=== PATIENT | female | born 1945 | race Caucasian/White ===

== ENCOUNTER 2021-12-29 07:18 | Observation (INO) | payer MEDICARE, OTHER ==
[2021-12-28 14:30] LABS: BASOPHILS % (AUTO) 0.5 % (0-1); EOSINOPHILS # (AUTO) 0.1 X10'3 (0-0.9); EOSINOPHILS % (AUTO) 0.9 % (0-6); HEMATOCRIT 41.9 % (35.0-45.0); LYMPHOCYTES # (AUTO) 0.9 X10'3 (1.1-4.8); LYMPHOCYTES % (AUTO) 13.2 % (21-51); MEAN CORPUSCULAR HEMOGLOBIN 29.9 PG (27.0-31.0); MEAN CORPUSCULAR HGB CONC 33.4 g/dL (33.0-36.5); MEAN CORPUSCULAR VOLUME 89.5 FL (78-98); MEAN PLATELET VOLUME 7.9 FL (7.4-10.4); MONOCYTES # (AUTO) 0.5 X10'3 (0-0.9); MONOCYTES % (AUTO) 6.6 % (2-12); NEUTROPHILS # (AUTO) 5.5 X10'3 (1.8-7.7); NEUTROPHILS % (AUTO) 78.8 % (42-75); PLATELET COUNT 183 X10'3 (140-440); RED BLOOD COUNT 4.68 X10'6 (4.20-5.60); RED CELL DISTRIBUTION WIDTH 14.2 % (11.5-14.5)
[2021-12-28 14:42] LABS: ANION GAP 4 (8-16); CHLORIDE 109 MMOL/L (99-107); GLUCOSE 120 MG/DL (70-104); POTASSIUM 4.2 MMOL/L (3.5-5.1); SODIUM 142 MMOL/L (135-145); TOTAL CARBON DIOXIDE 28.9 MMOL/L (24-32)
[2021-12-28 14:43] LABS: ALBUMIN 3.2 G/DL (3.4-5.0); BLOOD UREA NITROGEN 16 MG/DL (7-18); BUN/CREATININE RATIO 15.2 (6.6-38.0); CALCIUM 8.8 MG/DL (8.5-10.1); CREATININE 1.05 MG/DL (0.40-0.90); eGFR 51 ML/MIN
[2021-12-29] VITALS (23 sets, daily range): BP systolic 78–156; BP diastolic 35–90
[~2021-12-29] VITALS: Ht 162.6 cm; Wt 67.2 kg
[~2021-12-29 07:18] MED LIST: ASPI-1265 PO; FAMO-1 PO; FLUO20CA39 PO; LISI20TA28 PO; ROSU5TAB4 PO; ZET10T PO
[2021-12-29] MEDS ORDERED: amiodarone 150mg/dext, iso-os 100 ML IV ONE (07:50)
[2021-12-29] MEDS ORDERED: LORazepam 0.5 MG tablet PO ONE (07:50)
[2021-12-29] MEDS ORDERED: normal saline 1000ml 1,000 ML IV SCH (07:50)
[2021-12-29] MEDS ORDERED: morphine 10mg/ml inj. IV ONE (07:50)
[2021-12-29] MEDS ORDERED: MIDAZolam 1mg/ml 10ml vial IV ONE (07:50)
[2021-12-29] MEDS ORDERED: atropine 0.1mg/ml 10ml syringe IV ONE (07:50)
[2021-12-29] MEDS ORDERED: diphenhydrAMINE 25mg capsule PO ONE (07:50)
[2021-12-29] MEDS ORDERED: APIX5TAB3 PO (07:51)
[2021-12-29] MEDS ORDERED: ROSU40TA22 PO (07:51)
[2021-12-29] MEDS ORDERED: AMIO200T61 (07:51)
[2021-12-29] MEDS ORDERED: CARV6.2555 PO (07:51)
[2021-12-29] MEDS ORDERED: enoxaparin 100mg/ml syringe SUBCUT ONE (07:55)
[2021-12-29] MEDS ORDERED: enoxaparin 40mg/0.4ml syringe SUBCUT ONE (08:10)
[2021-12-29] MEDS ORDERED: enoxaparin 30mg/0.3ml syringe SUBCUT ONE (08:10)
--- NOTE | 2021-12-29 11:40 | NUR ---
Pt laying in bed, drank 200ml oral fluid. Pt denies cp, denies sob. Pt and family were educated extensively on s/s of hypotension, monitoring HR and medication administration. Pt verbalized understanding importance of taking her BP prior to taking her medications at home to document HR. She states she understands not to take her carvedilol if her HR is lower than <45. Pt's son and hiprjxxi-oq-pnt are at the bedside. All questions were answered.
--- NOTE | 2021-12-29 12:06 | NUR ---
Pt sat up with feet dangling. Orthostatic vs charted. Pt remains marcell, denies cp, denies sob. Pt drank 250ml water.
--- NOTE | 2021-12-29 12:46 | NUR ---
Contacted MD to report pt difficulty in ambulating. Pt denies cp and sob. Pt vs charted. Pt family states concerns in patients ability to care for herself at home alone. Son and [id number] live out of town. MD states he will call back.
--- NOTE | 2021-12-29 13:37 | NUR ---
MD at bedside. Pt resting in bed. Son at bedside.
[2021-12-29] MEDS ORDERED: AMIO100T4 PO (14:21)
[2021-12-29] MEDS ORDERED: CARV3.122 PO (14:23)
[2021-12-29] MEDS: normal saline 1000ml 1,000 ML IV SCH ×2 (14:32→20:20)
--- NOTE | 2021-12-29 14:32 | NUR ---
Pt sitting up in bed, visiting with son and asuarkae-od-hfs who are at bedside. Pt HR 39 SpO2 97% on RA, Resp 19 BP 89/44. Pt denies cp, denies sob. Denies pain.
--- NOTE | 2021-12-29 15:53 | NUR ---
Pt reports feeling "dizzy" and that it was "hard to concentrate" as she was playing scrabble on her phone. Pt VS HR 39 BP 149/132, SpO2 88% on RA. Pt has equal bilateral wallboard worker, no facial droop, neuro check fine, no slurred speech. Gurpreet LING
--- NOTE | 2021-12-29 16:01 | NUR ---
All findings reported to MD. Echocardiogram ordered.
--- NOTE | 2021-12-29 16:04 | NUR ---
Pt sitting up in bed, playing "Scrabble" on her phone. Pt denies cp, denies sob. Pt's son at bedside. Educated patient on new order for Echo to be performed. Reassurance given to patient. Pt verbalized understanding, all questions answered.
--- NOTE | 2021-12-29 16:10 | NUR ---
renal dialysis technician at bedside.
--- NOTE | 2021-12-29 16:35 | NUR ---
Problems reprioritized. Patient report given, questions answered & plan of care reviewed with Elizabeth RIOS.
--- NOTE | 2021-12-29 16:45 | NUR ---
Pt transferred to tele
--- NOTE | 2021-12-29 17:45 | NUR ---
Pt son reporting that pt was not able to remember a word. "She is normally really sharp" Completed neuro assessment -Pt has equal bilateral electronic equipment maint tech, no facial droop, neuro check fine, no slurred speech. Pt VS HR 42 BP 110/51, SpO2 97% on RA. Paged MD Quick with answering service finally answered after 3 minutes on hold.
[2021-12-29] MEDS ORDERED: ondansetron/PF 4mg/2ml inj IV PRN (18:25)
--- NOTE | 2021-12-29 19:00 | NUR ---
Multiple orders rec'd from Dr CRAIG, all read back and entered. Pt still has not urinated. No bladder distention and pt does not feel the urge. She advised that she's had a problem urinating. Per MD, ok to straight cath if she retains urine.
[2021-12-29] MEDS: lisinopril 20mg tablet PO SCH (20:00)
[2021-12-29] MEDS ORDERED: carVEDilol 3.125mg tablet PO SCH (20:00)
[2021-12-29] MEDS: FLUoxetine 20mg capsule PO SCH (20:00)
[2021-12-29] MEDS ORDERED: apixaban 5mg tablet PO SCH (20:00)
--- NOTE | 2021-12-29 20:10 | NUR ---
Called Dr CRAIG call center: LM with potential left temporal stroke. Pending call back.
[2021-12-29] MEDS ORDERED: heparin 10,000 units/1 ML INJ IV PRN (20:20)
[2021-12-29] MEDS ORDERED: heparin 10,000 units/1 ML INJ IV ONE (20:20)
[2021-12-29] MEDS ORDERED: heparin 25,000 UNIT/250ml bag 250 ML IV PRN (20:20)
--- NOTE | 2021-12-29 20:28 | NUR ---
Per CM - call stroke alert for confirmation and start hep gtt. 4000 bolus, start hep gtt @ 1000. Per stroke nurseHarriet - need stroke alert head CT, no contrast, do NOT start hep gtt yet.
[2021-12-29 22:23] LABS: BASOPHILS # (AUTO) 0.1 X10'3 (0-0.2); BASOPHILS % (AUTO) 0.5 % (0-1); EOSINOPHILS # (AUTO) 0.1 X10'3 (0-0.9); EOSINOPHILS % (AUTO) 0.8 % (0-6); HEMATOCRIT 38.8 % (35.0-45.0); HEMOGLOBIN 12.6 g/dl (12.0-16.0); LYMPHOCYTES # (AUTO) 0.9 X10'3 (1.1-4.8); LYMPHOCYTES % (AUTO) 9.4 % (21-51); MEAN CORPUSCULAR HEMOGLOBIN 29.5 PG (27.0-31.0); MEAN CORPUSCULAR HGB CONC 32.5 g/dL (33.0-36.5); MEAN CORPUSCULAR VOLUME 90.9 FL (78-98); MEAN PLATELET VOLUME 8.4 FL (7.4-10.4); MONOCYTES # (AUTO) 0.6 X10'3 (0-0.9); MONOCYTES % (AUTO) 6.1 % (2-12); NEUTROPHILS # (AUTO) 8.2 X10'3 (1.8-7.7); NEUTROPHILS % (AUTO) 83.2 % (42-75); PLATELET COUNT 159 X10'3 (140-440); RED BLOOD COUNT 4.26 X10'6 (4.20-5.60); RED CELL DISTRIBUTION WIDTH 14.8 % (11.5-14.5); WHITE BLOOD COUNT 9.8 X10'3 (4.5-11.0)
[2021-12-29 22:36] LABS: APTT 30 SECONDS (22-32)
[2021-12-30] VITALS (8 sets, daily range): BP systolic 125–138; BP diastolic 42–70
--- NOTE | 2021-12-30 01:25 | NUR ---
called answering service of dr. dhillon.
--- NOTE | 2021-12-30 05:30 | NUR ---
small bruise noted rt outer thigh and small scratch inner l thigh.
--- NOTE | 2021-12-30 05:56 | NUR ---
Pt fell around 0050 this morning unassisted on to the floor and she was helped back to bed; no injury noted. She is on heparin drip but no signs of bleeding noted. June RN did call out to Dr. Meng to notify of pt's fall.
[2021-12-30 06:06] LABS: BASOPHILS % (AUTO) 0.4 % (0-1); EOSINOPHILS % (AUTO) 0.5 % (0-6); HEMATOCRIT 34.2 % (35.0-45.0); HEMOGLOBIN 11.4 g/dl (12.0-16.0); LYMPHOCYTES # (AUTO) 1.2 X10'3 (1.1-4.8); MEAN CORPUSCULAR HEMOGLOBIN 30.3 PG (27.0-31.0); MEAN CORPUSCULAR HGB CONC 33.2 g/dL (33.0-36.5); MEAN CORPUSCULAR VOLUME 91.3 FL (78-98); MEAN PLATELET VOLUME 8.3 FL (7.4-10.4); MONOCYTES # (AUTO) 0.7 X10'3 (0-0.9); MONOCYTES % (AUTO) 7.1 % (2-12); NEUTROPHILS # (AUTO) 7.4 X10'3 (1.8-7.7); PLATELET COUNT 137 X10'3 (140-440); RED BLOOD COUNT 3.75 X10'6 (4.20-5.60); RED CELL DISTRIBUTION WIDTH 14.8 % (11.5-14.5); WHITE BLOOD COUNT 9.4 X10'3 (4.5-11.0)
[2021-12-30 06:15] LABS: ALANINE AMINOTRANSFERASE 49 U/L (12-78); ALBUMIN 2.7 G/DL (3.4-5.0); ALBUMIN/GLOBULIN RATIO 1.2 (1.1-1.5); ALKALINE PHOSPHATASE 71 IU/L (46-116); ANION GAP 7 (8-16); ASPARTATE AMINO TRANSFERASE 47 U/L (10-37); BILIRUBIN,TOTAL 0.6 MG/DL (0.1-1.0); BLOOD UREA NITROGEN 22 MG/DL (7-18); BUN/CREATININE RATIO 15.7 (6.6-38.0); CALCIUM 7.9 MG/DL (8.5-10.1); CHLORIDE 110 MMOL/L (99-107); GLUCOSE 84 MG/DL (70-104); POTASSIUM 4.5 MMOL/L (3.5-5.1); SODIUM 141 MMOL/L (135-145); TOTAL CARBON DIOXIDE 23.7 MMOL/L (24-32); eGFR 37 ML/MIN
[2021-12-30] MEDS: ceFAZolin/D5W- 1GM premix 50 ML IV SCH ×3 (08:00→23:52)
[2021-12-30] MEDS ORDERED: amiodarone 200mg tablet PO SCH (08:00)
[2021-12-30] MEDS: aspirin 81mg tab.chew PO SCH (08:00)
[2021-12-30] MEDS: FLUoxetine 20mg capsule PO SCH ×2 (08:55→20:52)
[2021-12-30] MEDS: atorvastatin 20mg tablet PO SCH (08:55)
[2021-12-30] MEDS: ezetimibe 10mg tablet PO SCH (08:55)
[2021-12-30] MEDS: lisinopril 20mg tablet PO SCH ×2 (08:55→20:52)
--- NOTE | 2021-12-30 11:07 | NUR ---
Right hip bruise reassessed per pt family's request. Pt's bruise raised and purple, tender to palpation. Pt in good spirits and otherwise states she is feels fine. neurovascular intact and at baseline. Will continue to monitor.
[2021-12-30] MEDS ORDERED: LIDOCAINE 1%/EPI 1:100,000 inj. 10 ML multi-dose vial ONE ×2 (11:50→12:30)
[2021-12-30] MEDS ORDERED: ceFAZolin 1000mg inj ONE (11:51)
[2021-12-30] MEDS ORDERED: midazolam 1 mg/ML 2ml injection ONE (11:51)
[2021-12-30] MEDS ORDERED: fentaNYL/PF 50MCG/1 ML 2ML syringe ONE (11:51)
[2021-12-30] MEDS ORDERED: normal saline 1,000 ML IV SCH (14:25)
[2021-12-30] MEDS ORDERED: vancomycin/NS 1 GM ADD-VANTAGE 250 ML X 1 DOSE IV ONE (15:00)
--- NOTE | 2021-12-30 19:02 | NUR ---
Patient in room PCU 3012G. I have received report from Karolyn RIOS and had the opportunity to ask questions and assume patient care. Pt is laying semi fowlers in bed. Pt has L arm in sling. Sx Dressing to L chest CDI. No s/s of bleeding. Pt declines c/o pain at this time. Pt has ABX running per MD order. BLL, call light within reach, frequently used items in reach, frequent rounding, bed alarm on , alarm activated and audiable, sql consultant socks on. Will continue to monitor.
[2021-12-30] MEDS: carvedilol 6.25mg tablet PO SCH (21:58)
--- NOTE | 2021-12-31 05:50 | NUR ---
Dc'd pts patterson. Bladder trained pt by clamping and unclamping patterson thought the night. Removed patterson catheter at 0530. Pt tolerated well. No s/s of bladder distention. Will continue to monitor.
[2021-12-31 06:00] VITALS: BP 131/55
--- NOTE | 2021-12-31 06:26 | NUR ---
Problems reprioritized. Patient report given, questions answered & plan of care reviewed with Aura RIOS.
--- NOTE | 2021-12-31 06:45 | NUR ---
Patient in room PCU 3015. I have received report from Lavonne and had the opportunity to ask questions and assume patient care.
[2021-12-31] MEDS: ceFAZolin/D5W- 1GM premix 50 ML IV SCH ×2 (08:57→16:00)
[2021-12-31] MEDS: carvedilol 6.25mg tablet PO SCH (09:15)
[2021-12-31] MEDS: aspirin 81mg tab.chew PO SCH (09:15)
[2021-12-31] MEDS: FLUoxetine 20mg capsule PO SCH (09:16)
[2021-12-31] MEDS: lisinopril 20mg tablet PO SCH (09:16)
[2021-12-31] MEDS: atorvastatin 20mg tablet PO SCH (09:16)
[2021-12-31] MEDS: ezetimibe 10mg tablet PO SCH (09:17)
[2021-12-31 10:00] VITALS: BP 134/56
[2021-12-31] MEDS ORDERED: CEPH250T PO (10:50)
--- NOTE | 2021-12-31 15:15 | NUR ---
After reviewing DC instructions with pt and daughter, pt was walked down the corridor but still expressing some feelings of dizziness. Pt was able to walk with a FWW approx. 100 ft but became unstable on her feet. Pt placed in wheelchair and back in her room. Daughter at bedside. Reached out to cardio ROLLER INSPECTOR. Advised to call oncology pharmacist. Called answering service as the 's office was closed. Explained pt's symptoms and last VS. Pending return call from oncology pharmacist.
[2021-12-31 15:18] VITALS: BP 98/41
--- NOTE | 2021-12-31 15:30 | NUR ---
Discussed options with marketing sales representative. Discussed with daughter and her that they could stay with pt, the concern is now getting her into the home. Pt's daughter was asking for a wheelchair to be sent home. Pt's daughter was concerned about pt falling even though family would be present. [employer] was advised pt was okay to go home as the same issue with slight dizziness may present itself tomorrow and then what would the plan be... Returned to discuss concerns with pt and daughter. They asked to wait until the daughter's could be present to assist with getting pt home and to help care for her. The is an estimated 2.5 hours away. [employer] ok with pt staying for the approx. 2.5 hours. Addendum: 12/31/21 at 1741 by Aura Seth RN Pt was able to discharge at 17:30. Pt was wheeled downstairs by staff and accompanied by her daughter. Her daughter will drive her home where the is waiting. During this notation, marketing sales representative phoned. Reviewed all that transpired with him and advised pt had left just moments ago. Pt has some slight weakness but feels much better. [employer] satisfied with the way the discharge was resolved.
[2022-01-06] MEDS ORDERED: CARV6.2555 PO (16:18)
[2022-01-06] MEDS ORDERED: CEPH250C PO (16:18)
[2022-01-06] MEDS ORDERED: AMIO200T61 PO (16:18)
[2022-01-06] MEDS ORDERED: LISI20TA28 PO (16:19)
[2022-01-06] MEDS ORDERED: FLUO40CA PO (16:20)
[2022-01-06] MEDS ORDERED: ACET325T55 PO (16:22)
== END 2021-12-31 17:30 | disposition home or self-care (01) ==
LOC: SSTAY O 07:18 → PCU 3S 13:47
PROVIDERS: ADMIT Internal Medicine Cardiovascular Disease; ATTEND Internal Medicine Cardiovascular Disease
DX: I97.190 Other postprocedural cardiac functional disturbances following cardiac surgery (principal); I49.5 Sick sinus syndrome; I95.9 Hypotension, unspecified; I25.10 Atherosclerotic heart disease of native coronary artery without angina pectoris; I10 Essential (primary) hypertension; E78.5 Hyperlipidemia, unspecified; R41.82 Altered mental status, unspecified; I48.0 Paroxysmal atrial fibrillation; Z79.01 Long term (current) use of anticoagulants; Z79.82 Long term (current) use of aspirin; Z95.1 Presence of aortocoronary bypass graft; Z79.899 Other long term (current) drug therapy
CPT/HCPCS: 33208; 36415; 70450; 70544; 70551; 71046; 80048; 80053; 85025; 85347; 85610; 85730; 92960; 93005; 93306; 96365; 96366; 96368; 96372; 96375; C1785; C1786; C1894; C1898; G0378; G0379; J0461; J0690; J1650; J2250; J2274; J2405; J3010; J3370; J3490; J7030; 99152; 99153; A4314; A4565; A4615; A4620; A6258; A6449

== ENCOUNTER 2022-01-21 11:55 | Inpatient (IN) | payer MEDICARE, OTHER ==
[~2022-01-21] VITALS: Ht 162.6 cm; Wt 65.0 kg
[2022-01-21] VITALS (10 sets, daily range): BP systolic 100–152; BP diastolic 43–70
[~2022-01-21 11:55] MED LIST changes: +ACET325T55 PO; +AMIO200T61 PO; +APIX5TAB3 PO; +CARV6.2555 PO; +CEPH250C PO; -FAMO-1 PO; +FER325T PO; +FLO0.1T PO; -FLUO20CA39 PO; +FLUO40CA PO; +ROSU40TA22 PO; -ROSU5TAB4 PO
[2022-01-21] MEDS ORDERED: ondansetron/PF 4mg/2ml inj IV ONE (12:55)
[2022-01-21] MEDS ORDERED: pantoprazole 40mg IV 80 MG in normal saline 100ml IV soln 100 ML IV ONE (12:55)
[2022-01-21 13:39] LABS: BASOPHILS # (AUTO) 0.1 X10'3 (0-0.2); BASOPHILS % (AUTO) 0.6 % (0-1); EOSINOPHILS % (AUTO) 0.3 % (0-6); LYMPHOCYTES # (AUTO) 0.8 X10'3 (1.1-4.8); LYMPHOCYTES % (AUTO) 8.7 % (21-51); MEAN CORPUSCULAR HEMOGLOBIN 33.1 PG (27.0-31.0); MEAN CORPUSCULAR HGB CONC 32.3 g/dL (33.0-36.5); MEAN CORPUSCULAR VOLUME 102.6 FL (78-98); MEAN PLATELET VOLUME 7.8 FL (7.4-10.4); MONOCYTES # (AUTO) 0.6 X10'3 (0-0.9); MONOCYTES % (AUTO) 7.1 % (2-12); NEUTROPHILS # (AUTO) 7.3 X10'3 (1.8-7.7); NEUTROPHILS % (AUTO) 83.3 % (42-75); PLATELET COUNT 214 X10'3 (140-440); RED BLOOD COUNT 1.91 X10'6 (4.20-5.60); RED CELL DISTRIBUTION WIDTH 21.3 % (11.5-14.5); WHITE BLOOD COUNT 8.8 X10'3 (4.5-11.0)
[2022-01-21 13:52] LABS: HEMATOCRIT 19.6 % (35.0-45.0); HEMOGLOBIN 6.3 g/dl (12.0-16.0)
[2022-01-21 13:54] LABS: APTT 27 SECONDS (22-32)
[2022-01-21 14:11] LABS: ALANINE AMINOTRANSFERASE 22 U/L (12-78); ALBUMIN 2.5 G/DL (3.4-5.0); ALBUMIN/GLOBULIN RATIO 1.2 (1.1-1.5); ALKALINE PHOSPHATASE 58 IU/L (46-116); ANION GAP 5 (8-16); ASPARTATE AMINO TRANSFERASE 22 U/L (10-37); BILIRUBIN,TOTAL 0.5 MG/DL (0.1-1.0); BLOOD UREA NITROGEN 34 MG/DL (7-18); BUN/CREATININE RATIO 31.8 (6.6-38.0); CALCIUM 8.3 MG/DL (8.5-10.1); CHLORIDE 109 MMOL/L (99-107); CREATININE 1.07 MG/DL (0.40-0.90); GLUCOSE 116 MG/DL (70-104); POTASSIUM 3.9 MMOL/L (3.5-5.1); SODIUM 141 MMOL/L (135-145); TOTAL CARBON DIOXIDE 26.6 MMOL/L (24-32); TOTAL PROTEIN 4.6 G/DL (6.4-8.2); eGFR 50 ML/MIN
[2022-01-21 14:28] LABS: CLARITY,URINE CLEAR (Clear); COLOR,URINE YELLOW (Yellow); GLUCOSE, URINE NEGATIVE (Neg); KETONES,URINE NEGATIVE (Neg); LEUKOCYTE ESTERASE ,URINE NEGATIVE (Neg); NITRITES, URINE NEGATIVE (Neg); OCCULT BLOOD,URINE NEGATIVE (Neg); PH,URINE 5.5 (4.8-8.0); PROTEIN,URINE NEGATIVE (Neg); UROBILINOGEN,URINE 0.2 E.U/dL (0.2-1.0)
[2022-01-21 14:30] LABS: ANISOCYTOSIS 3+; PLATELET ESTIMATE NORMAL; POLYCHROMASIA 1+
[2022-01-21 14:30] LABS: UA COLLECTION TYPE VOIDED
[2022-01-21 14:31] LABS: ELLIPTOCYTES FEW; TEAR DROP CELLS FEW
[2022-01-21] MEDS ORDERED: magnesium hydroxide 30ml (MOM) UD suspension PO PRN (15:05)
[2022-01-21] MEDS ORDERED: potassium Cl 40MEQ/1/2NS 520ml 520 ML IV PRN (15:05)
[2022-01-21] MEDS ORDERED: ondansetron/PF 4mg/2ml inj IV PRN (15:05)
[2022-01-21] MEDS ORDERED: mag hydrox/Alum hydrox/simeth 30ml oral suspension PO PRN (15:05)
[2022-01-21] MEDS ORDERED: magnesium 4gm in 100ml NS 100 ML IV PRN (15:05)
[2022-01-21] MEDS ORDERED: potassium Cl 20 mEq SR tablet PO PRN ×2 (15:05)
[2022-01-21] MEDS ORDERED: acetaminophen 325mg tablet PO PRN (15:05)
[2022-01-21] MEDS ORDERED: magnesium Cl slow-release 64mg tablet PO PRN (15:05)
[2022-01-21] MEDS ORDERED: FLUO-167 PO (15:48)
[2022-01-21] MEDS ORDERED: RIVA20TA PO (16:04)
[2022-01-21] MEDS ORDERED: FLUD0.1T PO (16:04)
[2022-01-21] MEDS ORDERED: MAGN400O6 PO (16:04)
[2022-01-21] MEDS ORDERED: FERR-39 PO (16:04)
[2022-01-21] MEDS ORDERED: NA P133E4 RC (16:04)
[2022-01-21] MEDS ORDERED: ONDA-103 PO (16:04)
[2022-01-21] MEDS ORDERED: ATOR20TA66 PO (16:04)
[2022-01-21] MEDS ORDERED: BISA10SU11 RC (16:04)
[2022-01-21] MEDS ORDERED: MULT-1085 PO (16:04)
[2022-01-21] MEDS ORDERED: BISA-155 PO (16:04)
[2022-01-21] MEDS ORDERED: DOCU100C40 PO (16:04)
[2022-01-21] MEDS: ferrous sulfate 325mg tablet PO SCH (20:00)
[2022-01-21 21:38] LABS: HEMATOCRIT 27.8 % (35.0-45.0); HEMOGLOBIN 9.4 g/dl (12.0-16.0); MEAN CORPUSCULAR HEMOGLOBIN 31.4 PG (27.0-31.0); MEAN CORPUSCULAR HGB CONC 33.8 g/dL (33.0-36.5); MEAN CORPUSCULAR VOLUME 92.9 FL (78-98); MEAN PLATELET VOLUME 7.6 FL (7.4-10.4); PLATELET COUNT 154 X10'3 (140-440); RED CELL DISTRIBUTION WIDTH 22.4 % (11.5-14.5); WHITE BLOOD COUNT 9.5 X10'3 (4.5-11.0)
[2022-01-21] MEDS: docusate sod 100mg capsule PO SCH (22:42)
[2022-01-21] MEDS: carvedilol 6.25mg tablet PO SCH (22:42)
[2022-01-22] VITALS (11 sets, daily range): BP systolic 121–152; BP diastolic 45–60
[2022-01-22 06:49] LABS: ALANINE AMINOTRANSFERASE 19 U/L (12-78); ALBUMIN 2.3 G/DL (3.4-5.0); ALBUMIN/GLOBULIN RATIO 1.1 (1.1-1.5); ALKALINE PHOSPHATASE 56 IU/L (46-116); ANION GAP 7 (8-16); ASPARTATE AMINO TRANSFERASE 19 U/L (10-37); BILIRUBIN,TOTAL 1.3 MG/DL (0.1-1.0); BLOOD UREA NITROGEN 34 MG/DL (7-18); BUN/CREATININE RATIO 35.1 (6.6-38.0); CALCIUM 8.1 MG/DL (8.5-10.1); CHLORIDE 111 MMOL/L (99-107); CREATININE 0.97 MG/DL (0.40-0.90); GLUCOSE 92 MG/DL (70-104); MAGNESIUM 1.9 MG/DL (1.5-2.4); SODIUM 143 MMOL/L (135-145); TOTAL CARBON DIOXIDE 24.9 MMOL/L (24-32); TOTAL PROTEIN 4.4 G/DL (6.4-8.2); eGFR 56 ML/MIN
[2022-01-22 06:52] LABS: ABSOLUTE RETICS # 298500 /CUMM (23000-93000); BASOPHILS # (AUTO) 0.1 X10'3 (0-0.2); BASOPHILS % (AUTO) 0.6 % (0-1); EOSINOPHILS # (AUTO) 0.1 X10'3 (0-0.9); EOSINOPHILS % (AUTO) 0.8 % (0-6); HEMATOCRIT 26.8 % (35.0-45.0); HEMOGLOBIN 9.2 g/dl (12.0-16.0); LYMPHOCYTES # (AUTO) 1.2 X10'3 (1.1-4.8); LYMPHOCYTES % (AUTO) 14.2 % (21-51); MEAN CORPUSCULAR HEMOGLOBIN 31.8 PG (27.0-31.0); MEAN CORPUSCULAR HGB CONC 34.3 g/dL (33.0-36.5); MEAN CORPUSCULAR VOLUME 92.7 FL (78-98); MEAN PLATELET VOLUME 7.8 FL (7.4-10.4); MONOCYTES # (AUTO) 0.6 X10'3 (0-0.9); MONOCYTES % (AUTO) 7.3 % (2-12); NEUTROPHILS # (AUTO) 6.5 X10'3 (1.8-7.7); NEUTROPHILS % (AUTO) 77.1 % (42-75); PLATELET COUNT 147 X10'3 (140-440); RED CELL DISTRIBUTION WIDTH 23.2 % (11.5-14.5); RETICULOCYTE % (AUTO) 10.3 % (0.5-1.5); WHITE BLOOD COUNT 8.5 X10'3 (4.5-11.0)
--- NOTE | 2022-01-22 06:59 | NUR ---
Patient in room PCU 3024. I have received report from GABRIEL Vee and had the opportunity to ask questions and assume patient care.
[2022-01-22 07:28] LABS: % IRON SATURATION 81 % (11-46); IRON 233 UG/DL (49-151); TOTAL IRON BINDING CAPACITY 287 UG/DL (259-388)
[2022-01-22 07:29] LABS: FERRITIN 92 NG/ML (8-252)
[2022-01-22] MEDS: docusate sod 100mg capsule PO SCH ×2 (07:46→21:50)
[2022-01-22 07:47] LABS: ANISOCYTOSIS 3+; NUCLEATED RED BLOOD CELLS 2 /100WBC (0-0); PLATELET ESTIMATE NORMAL; TOTAL CELLS COUNTED 100
[2022-01-22] MEDS: amiodarone 200mg tablet PO SCH (07:48)
[2022-01-22] MEDS: carvedilol 6.25mg tablet PO SCH ×2 (07:48→21:45)
[2022-01-22] MEDS: FLUoxetine 20mg capsule PO SCH (07:48)
[2022-01-22] MEDS: ferrous sulfate 325mg tablet PO SCH ×2 (07:49→21:45)
[2022-01-22] MEDS: atorvastatin 20mg tablet PO SCH (07:50)
[2022-01-22] MEDS: ezetimibe 10mg tablet PO SCH (10:06)
--- NOTE | 2022-01-22 18:15 | NUR ---
Patient in room PCU 3024. I have received report from Maxine RIOS and had the opportunity to ask questions and assume patient care.
--- NOTE | 2022-01-22 18:25 | NUR ---
Problems reprioritized. Patient report given, questions answered & plan of care reviewed with MARCIANO Garg.
--- NOTE | 2022-01-23 01:29 | NUR ---
Student documentation: I have reviewed and agree with all interventions, assessments performed and documented by Rae Jackson.
--- NOTE | 2022-01-23 01:30 | NUR ---
Student Medication Administration: For this medication-pass time frame, all medication were reviewed, dispensed, administered and documented per hospital policy by Rae Jackson.
[2022-01-23 02:00] VITALS: BP 125/55
[2022-01-23 06:00] VITALS: BP 106/55
[2022-01-23 06:29] LABS: BASOPHILS % (AUTO) 0.7 % (0-1); EOSINOPHILS # (AUTO) 0.1 X10'3 (0-0.9); EOSINOPHILS % (AUTO) 1.5 % (0-6); HEMATOCRIT 24.1 % (35.0-45.0); HEMOGLOBIN 8.1 g/dl (12.0-16.0); LYMPHOCYTES % (AUTO) 13.6 % (21-51); MEAN CORPUSCULAR HEMOGLOBIN 31.3 PG (27.0-31.0); MEAN CORPUSCULAR HGB CONC 33.6 g/dL (33.0-36.5); MEAN CORPUSCULAR VOLUME 93.3 FL (78-98); MONOCYTES # (AUTO) 0.6 X10'3 (0-0.9); MONOCYTES % (AUTO) 8.3 % (2-12); NEUTROPHILS # (AUTO) 5.4 X10'3 (1.8-7.7); NEUTROPHILS % (AUTO) 75.9 % (42-75); PLATELET COUNT 141 X10'3 (140-440); RED BLOOD COUNT 2.58 X10'6 (4.20-5.60); RED CELL DISTRIBUTION WIDTH 22.9 % (11.5-14.5); WHITE BLOOD COUNT 7.1 X10'3 (4.5-11.0)
--- NOTE | 2022-01-23 06:42 | NUR ---
Problems reprioritized. Patient report given, questions answered & plan of care reviewed with Trish RIOS.
[2022-01-23 06:49] LABS: ALANINE AMINOTRANSFERASE 19 U/L (12-78); ALBUMIN 2.2 G/DL (3.4-5.0); ALBUMIN/GLOBULIN RATIO 1.1 (1.1-1.5); ALKALINE PHOSPHATASE 56 IU/L (46-116); ANION GAP 6 (8-16); ASPARTATE AMINO TRANSFERASE 17 U/L (10-37); BILIRUBIN,TOTAL 0.5 MG/DL (0.1-1.0); BLOOD UREA NITROGEN 30 MG/DL (7-18); BUN/CREATININE RATIO 27.5 (6.6-38.0); CALCIUM 8.3 MG/DL (8.5-10.1); CHLORIDE 111 MMOL/L (99-107); CREATININE 1.09 MG/DL (0.40-0.90); GLUCOSE 93 MG/DL (70-104); MAGNESIUM 2.1 MG/DL (1.5-2.4); SODIUM 144 MMOL/L (135-145); TOTAL CARBON DIOXIDE 27.5 MMOL/L (24-32); TOTAL PROTEIN 4.2 G/DL (6.4-8.2); eGFR 49 ML/MIN
[2022-01-23 07:34] LABS: TOTAL CELLS COUNTED 100
[2022-01-23 07:35] LABS: ANISOCYTOSIS 3+; PLATELET ESTIMATE NORMAL
[2022-01-23 07:37] LABS: POLYCHROMASIA FEW
[2022-01-23 07:38] LABS: SCHISTOCYTES FEW
[2022-01-23] MEDS: docusate sod 100mg capsule PO SCH ×2 (08:21→21:31)
[2022-01-23] MEDS: atorvastatin 20mg tablet PO SCH (08:22)
[2022-01-23] MEDS: amiodarone 200mg tablet PO SCH (08:22)
[2022-01-23] MEDS: ezetimibe 10mg tablet PO SCH (08:22)
[2022-01-23] MEDS: FLUoxetine 20mg capsule PO SCH (08:22)
[2022-01-23] MEDS: ferrous sulfate 325mg tablet PO SCH ×2 (08:22→21:31)
[2022-01-23] MEDS: carvedilol 6.25mg tablet PO SCH ×2 (08:22→21:32)
[2022-01-23 10:20] VITALS: BP 139/56
[2022-01-23 15:39] VITALS: BP 110/45
[2022-01-23 16:05] LABS: OCCULT BLOOD STOOL POSITIVE (Neg)
[2022-01-23 18:00] VITALS: BP 118/53
--- NOTE | 2022-01-23 18:34 | NUR ---
Report to Phoebe RIOS
[2022-01-24] VITALS (10 sets, daily range): BP systolic 128–153; BP diastolic 59–72
--- NOTE | 2022-01-24 06:08 | NUR ---
Problems reprioritized. Patient report given, questions answered & plan of care reviewed with GABRIEL Santos.
[2022-01-24 07:33] LABS: BASOPHILS % (AUTO) 0.6 % (0-1); EOSINOPHILS # (AUTO) 0.1 X10'3 (0-0.9); EOSINOPHILS % (AUTO) 1.8 % (0-6); HEMATOCRIT 25.2 % (35.0-45.0); HEMOGLOBIN 8.5 g/dl (12.0-16.0); LYMPHOCYTES # (AUTO) 0.8 X10'3 (1.1-4.8); LYMPHOCYTES % (AUTO) 14.4 % (21-51); MEAN CORPUSCULAR HEMOGLOBIN 32.2 PG (27.0-31.0); MEAN CORPUSCULAR HGB CONC 33.6 g/dL (33.0-36.5); MEAN CORPUSCULAR VOLUME 95.7 FL (78-98); MEAN PLATELET VOLUME 8.2 FL (7.4-10.4); MONOCYTES # (AUTO) 0.4 X10'3 (0-0.9); NEUTROPHILS # (AUTO) 4.5 X10'3 (1.8-7.7); NEUTROPHILS % (AUTO) 76.2 % (42-75); PLATELET COUNT 154 X10'3 (140-440); RED BLOOD COUNT 2.63 X10'6 (4.20-5.60); RED CELL DISTRIBUTION WIDTH 23.5 % (11.5-14.5); WHITE BLOOD COUNT 5.9 X10'3 (4.5-11.0)
[2022-01-24] MEDS ORDERED: LIDOcaine Viscous 15ml cup ONE (07:33)
[2022-01-24] MEDS ORDERED: MIDAZolam 1 MG/ML 5ML VIAL ONE (07:33)
[2022-01-24] MEDS ORDERED: fentaNYL/PF 50MCG/1 ML 2ML syringe ONE (07:33)
[2022-01-24 08:04] LABS: ALANINE AMINOTRANSFERASE 21 U/L (12-78); ALBUMIN 2.4 G/DL (3.4-5.0); ALBUMIN/GLOBULIN RATIO 1.2 (1.1-1.5); ALKALINE PHOSPHATASE 64 IU/L (46-116); ANION GAP 5 (8-16); ASPARTATE AMINO TRANSFERASE 23 U/L (10-37); BILIRUBIN,TOTAL 0.5 MG/DL (0.1-1.0); BLOOD UREA NITROGEN 21 MG/DL (7-18); BUN/CREATININE RATIO 18.3 (6.6-38.0); CALCIUM 8.4 MG/DL (8.5-10.1); CHLORIDE 110 MMOL/L (99-107); CREATININE 1.15 MG/DL (0.40-0.90); GLUCOSE 88 MG/DL (70-104); MAGNESIUM 2.3 MG/DL (1.5-2.4); SODIUM 141 MMOL/L (135-145); TOTAL CARBON DIOXIDE 26.2 MMOL/L (24-32); TOTAL PROTEIN 4.4 G/DL (6.4-8.2); eGFR 46 ML/MIN
[2022-01-24 08:59] LABS: ANISOCYTOSIS 3+; MICROCYTOSIS 1+; PLATELET ESTIMATE NORMAL; POLYCHROMASIA 1+
[2022-01-24] MEDS: amiodarone 200mg tablet PO SCH (09:57)
[2022-01-24] MEDS: ezetimibe 10mg tablet PO SCH (09:57)
[2022-01-24] MEDS: ferrous sulfate 325mg tablet PO SCH ×2 (09:58→19:15)
[2022-01-24] MEDS: docusate sod 100mg capsule PO SCH ×2 (09:58→19:14)
[2022-01-24] MEDS: FLUoxetine 20mg capsule PO SCH (09:58)
[2022-01-24] MEDS: atorvastatin 20mg tablet PO SCH (09:58)
[2022-01-24] MEDS: carvedilol 6.25mg tablet PO SCH ×2 (09:58→19:14)
[2022-01-24] MEDS: pantoprazole 40mg Tablet.DR PO SCH (19:15)
[2022-01-25 02:00] VITALS: BP 147/68
[2022-01-25 06:00] VITALS: BP 131/68
--- NOTE | 2022-01-25 06:00 | NUR ---
Patient in room PCU 3024. I have received report from Phoebe RIOS and had the opportunity to ask questions and assume patient care.
[2022-01-25 06:59] LABS: BASOPHILS % (AUTO) 0.9 % (0-1); EOSINOPHILS # (AUTO) 0.1 X10'3 (0-0.9); EOSINOPHILS % (AUTO) 1.9 % (0-6); HEMATOCRIT 26.5 % (35.0-45.0); HEMOGLOBIN 8.8 g/dl (12.0-16.0); LYMPHOCYTES # (AUTO) 0.7 X10'3 (1.1-4.8); LYMPHOCYTES % (AUTO) 16.6 % (21-51); MEAN CORPUSCULAR HEMOGLOBIN 32.4 PG (27.0-31.0); MEAN CORPUSCULAR HGB CONC 33.3 g/dL (33.0-36.5); MEAN CORPUSCULAR VOLUME 97.4 FL (78-98); MONOCYTES # (AUTO) 0.3 X10'3 (0-0.9); MONOCYTES % (AUTO) 7.2 % (2-12); NEUTROPHILS # (AUTO) 3.2 X10'3 (1.8-7.7); NEUTROPHILS % (AUTO) 73.4 % (42-75); PLATELET COUNT 154 X10'3 (140-440); RED BLOOD COUNT 2.72 X10'6 (4.20-5.60); RED CELL DISTRIBUTION WIDTH 23.4 % (11.5-14.5); WHITE BLOOD COUNT 4.4 X10'3 (4.5-11.0)
[2022-01-25 07:17] LABS: ALANINE AMINOTRANSFERASE 25 U/L (12-78); ALBUMIN 2.4 G/DL (3.4-5.0); ALBUMIN/GLOBULIN RATIO 1.2 (1.1-1.5); ALKALINE PHOSPHATASE 73 IU/L (46-116); ANION GAP 6 (8-16); ASPARTATE AMINO TRANSFERASE 24 U/L (10-37); BILIRUBIN,TOTAL 0.7 MG/DL (0.1-1.0); BLOOD UREA NITROGEN 14 MG/DL (7-18); CALCIUM 8.3 MG/DL (8.5-10.1); CHLORIDE 109 MMOL/L (99-107); CREATININE 1.17 MG/DL (0.40-0.90); GLUCOSE 86 MG/DL (70-104); MAGNESIUM 2.1 MG/DL (1.5-2.4); SODIUM 142 MMOL/L (135-145); TOTAL CARBON DIOXIDE 27.3 MMOL/L (24-32); TOTAL PROTEIN 4.4 G/DL (6.4-8.2); eGFR 45 ML/MIN
[2022-01-25] MEDS: docusate sod 100mg capsule PO SCH (07:51)
[2022-01-25] MEDS: amiodarone 200mg tablet PO SCH (07:51)
[2022-01-25] MEDS: carvedilol 6.25mg tablet PO SCH (07:52)
[2022-01-25] MEDS: atorvastatin 20mg tablet PO SCH (07:52)
[2022-01-25] MEDS: pantoprazole 40mg Tablet.DR PO SCH (07:52)
[2022-01-25] MEDS: ferrous sulfate 325mg tablet PO SCH (07:52)
[2022-01-25] MEDS: FLUoxetine 20mg capsule PO SCH (07:52)
[2022-01-25] MEDS: ezetimibe 10mg tablet PO SCH (07:53)
[2022-01-25 07:58] LABS: PLATELET ESTIMATE NORMAL; TOTAL CELLS COUNTED 100
[2022-01-25 07:59] LABS: ANISOCYTOSIS 3+; LARGE PLATELETS FEW; POLYCHROMASIA 1+
[2022-01-25] MEDS ORDERED: apixaban 5mg tablet PO SCH (08:00)
[2022-01-25] MEDS ORDERED: FER325T PO (11:04)
[2022-01-25] MEDS ORDERED: PANT40TA54 PO (11:04)
--- NOTE | 2022-01-25 12:35 | NUR ---
MARCIANO Medication Administration: For this medication-pass time frame, all medication were reviewed, dispensed, administered and documented per hospital policy by MARCIANO VILLARREAL.
--- NOTE | 2022-01-25 12:35 | NUR ---
PHYSIOLOGY TEACHER documentation: I have reviewed and agree with all interventions, assessments performed and documented by MARCIANO VILLARREAL.
--- NOTE | 2022-01-25 12:43 | NUR ---
Patient is discharged today into the care of her son. Helped patient to get dressed and gathered all belongings. IV was taken out by resource RN. Patient is stable, alert and orientated. Patient was wheeled down and helped into private car
== END 2022-01-25 12:46 | disposition home or self-care (01) | DRG 391 ==
LOC: ER 11:55 → ED HOLD 15:20 → EDBEDREQ 17:42 → PCU 3S 19:00
PROVIDERS: ADMIT Family Medicine; ATTEND Family Medicine
PROC: 30233N1 Transfusion of Nonautologous Red Blood Cells into Peripheral Vein, Percutaneous Approach (ICD-10-PCS; 2022-01-21)
PROC: 0DB78ZX Excision of Stomach, Pylorus, Via Natural or Artificial Opening Endoscopic, Diagnostic (ICD-10-PCS; principal; 2022-01-24)
DX: K44.9 Diaphragmatic hernia without obstruction or gangrene (principal); K29.71 Gastritis, unspecified, with bleeding; E44.0 Moderate protein-calorie malnutrition; I48.92 Unspecified atrial flutter; N18.9 Chronic kidney disease, unspecified; K63.5 Polyp of colon; Z66 Do not resuscitate; I49.5 Sick sinus syndrome; D50.0 Iron deficiency anemia secondary to blood loss (chronic); D53.9 Nutritional anemia, unspecified; E78.00 Pure hypercholesterolemia, unspecified; I12.9 Hypertensive chronic kidney disease with stage 1 through stage 4 chronic kidney disease, or unspecified chronic kidney disease; I25.10 Atherosclerotic heart disease of native coronary artery without angina pectoris; I48.0 Paroxysmal atrial fibrillation; I95.1 Orthostatic hypotension; Z83.3 Family history of diabetes mellitus; Z68.24 Body mass index [BMI] 24.0-24.9, adult; Z88.1 Allergy status to other antibiotic agents; Z79.899 Other long term (current) drug therapy; Z95.0 Presence of cardiac pacemaker; Z95.1 Presence of aortocoronary bypass graft; Z95.5 Presence of coronary angioplasty implant and graft; Z90.49 Acquired absence of other specified parts of digestive tract
CPT/HCPCS: 36415; 36430; 43239; 71045; 80053; 81003; 82272; 82607; 82728; 83540; 83550; 83735; 84484; 85007; 85008; 85025; 85027; 85045; 85610; 85730; 86340; 86885; 86900; 86901; 86920; 88305; 88313; 88342; 97116; 97161; 97530; 99152; 99285; A4620; C9113; G0378; J2250; J2405; J3010; J3490; J7030; J7040; P9016

== ENCOUNTER 2022-02-18 13:05 | Emergency (ER) | payer MEDICARE, OTHER ==
[~2022-02-18] VITALS: Ht 162.6 cm; Wt 65.9 kg
[~2022-02-18 13:05] MED LIST changes: +ATOR20TA66 PO; +BISA10SU11 RC; -CEPH250C PO; +DOCU100C40 PO; -FLO0.1T PO; +FLUD0.1T PO; +FLUO-167 PO; -FLUO40CA PO; -LISI20TA28 PO; +MULT-1085 PO; +PANT40TA54 PO; -ROSU40TA22 PO
[2022-02-18 13:40] LABS: BASOPHILS % (AUTO) 0.4 % (0-1); EOSINOPHILS % (AUTO) 0.1 % (0-6); HEMATOCRIT 41.1 % (35.0-45.0); HEMOGLOBIN 13.5 g/dl (12.0-16.0); LYMPHOCYTES # (AUTO) 0.3 X10'3 (1.1-4.8); MEAN CORPUSCULAR HEMOGLOBIN 32.1 PG (27.0-31.0); MEAN CORPUSCULAR HGB CONC 32.8 g/dL (33.0-36.5); MEAN PLATELET VOLUME 7.6 FL (7.4-10.4); MONOCYTES # (AUTO) 0.6 X10'3 (0-0.9); MONOCYTES % (AUTO) 10.3 % (2-12); NEUTROPHILS # (AUTO) 4.7 X10'3 (1.8-7.7); NEUTROPHILS % (AUTO) 83.2 % (42-75); PLATELET COUNT 130 X10'3 (140-440); RED BLOOD COUNT 4.19 X10'6 (4.20-5.60); RED CELL DISTRIBUTION WIDTH 15.5 % (11.5-14.5); WHITE BLOOD COUNT 5.6 X10'3 (4.5-11.0)
[2022-02-18 14:01] LABS: ALANINE AMINOTRANSFERASE 29 U/L (12-78); ALBUMIN 3.2 G/DL (3.4-5.0); ALKALINE PHOSPHATASE 80 IU/L (46-116); ANION GAP 12 (8-16); ASPARTATE AMINO TRANSFERASE 23 U/L (10-37); BILIRUBIN,TOTAL 0.5 MG/DL (0.1-1.0); BLOOD UREA NITROGEN 19 MG/DL (7-18); CALCIUM 9.4 MG/DL (8.5-10.1); CHLORIDE 105 MMOL/L (99-107); GLUCOSE 116 MG/DL (70-104); SODIUM 142 MMOL/L (135-145); TOTAL CARBON DIOXIDE 25.2 MMOL/L (24-32); TOTAL PROTEIN 6.3 G/DL (6.4-8.2); eGFR 54 ML/MIN
[2022-02-18] MEDS ORDERED: TAM75C PO (15:51)
[2022-02-18 16:00] VITALS: BP 155/84
== END 2022-02-18 16:21 | disposition home or self-care (01) ==
LOC: ER 13:05
DX: J10.1 Influenza due to other identified influenza virus with other respiratory manifestations (principal); Z20.822 Contact with and (suspected) exposure to COVID-19; R53.1 Weakness; R05.9 Cough, unspecified; Z90.49 Acquired absence of other specified parts of digestive tract; Z95.0 Presence of cardiac pacemaker; Z88.1 Allergy status to other antibiotic agents; Z88.8 Allergy status to other drugs, medicaments and biological substances; Z79.2 Long term (current) use of antibiotics; Z79.899 Other long term (current) drug therapy
CPT/HCPCS: 36415; 71045; 80053; 83880; 84484; 85025; 85379; 87502; 87503; 87811; 93005; 99285

== ENCOUNTER 2022-04-27 07:41 | Day surgery (SDC) | payer MEDICARE, OTHER ==
[~2022-04-27] VITALS: Ht 162.6 cm; Wt 65.3 kg
[2022-04-27] VITALS (16 sets, daily range): BP systolic 115–159; BP diastolic 56–97
[2022-04-27] MEDS ORDERED: amiodarone 150mg/dext, iso-os 100 ML IV ONE (08:00)
[2022-04-27] MEDS ORDERED: morphine 10mg/ml inj. IV ONE (08:00)
[2022-04-27] MEDS ORDERED: diphenhydrAMINE 25mg capsule PO ONE (08:00)
[2022-04-27] MEDS ORDERED: LORazepam 0.5 MG tablet PO ONE (08:00)
[2022-04-27] MEDS ORDERED: MIDAZolam 1mg/ml 10ml vial IV ONE (08:00)
[2022-04-27] MEDS ORDERED: atropine 0.1mg/ml 10ml syringe IV ONE (08:00)
[2022-04-27 08:40] LABS: BASOPHILS % (AUTO) 0.6 % (0-1); EOSINOPHILS # (AUTO) 0.1 X10'3 (0-0.9); EOSINOPHILS % (AUTO) 1.3 % (0-6); HEMATOCRIT 40.5 % (35.0-45.0); HEMOGLOBIN 13.4 g/dl (12.0-16.0); LYMPHOCYTES # (AUTO) 0.8 X10'3 (1.1-4.8); LYMPHOCYTES % (AUTO) 13.5 % (21-51); MEAN CORPUSCULAR HEMOGLOBIN 30.1 PG (27.0-31.0); MEAN CORPUSCULAR HGB CONC 32.9 g/dL (33.0-36.5); MEAN CORPUSCULAR VOLUME 91.4 FL (78-98); MEAN PLATELET VOLUME 7.8 FL (7.4-10.4); MONOCYTES # (AUTO) 0.6 X10'3 (0-0.9); MONOCYTES % (AUTO) 9.4 % (2-12); NEUTROPHILS # (AUTO) 4.7 X10'3 (1.8-7.7); NEUTROPHILS % (AUTO) 75.2 % (42-75); PLATELET COUNT 159 X10'3 (140-440); RED BLOOD COUNT 4.44 X10'6 (4.20-5.60); RED CELL DISTRIBUTION WIDTH 15.5 % (11.5-14.5); WHITE BLOOD COUNT 6.2 X10'3 (4.5-11.0)
[2022-04-27 08:48] LABS: ALBUMIN 3.2 G/DL (3.4-5.0); ANION GAP 5 (8-16); BLOOD UREA NITROGEN 16 MG/DL (7-18); BUN/CREATININE RATIO 14.4 (6.6-38.0); CALCIUM 8.9 MG/DL (8.5-10.1); CHLORIDE 108 MMOL/L (99-107); CREATININE 1.11 MG/DL (0.40-0.90); GLUCOSE 103 MG/DL (70-104); POTASSIUM 3.9 MMOL/L (3.5-5.1); SODIUM 141 MMOL/L (135-145); TOTAL CARBON DIOXIDE 27.9 MMOL/L (24-32); eGFR 48 ML/MIN
[2022-04-27 08:50] LABS: APTT 31 SECONDS (22-32)
[2022-04-27] MEDS ORDERED: CHOL500050 PO (08:52)
[2022-04-27] MEDS ORDERED: LISI20TA28 PO (08:52)
[2022-04-27] MEDS ORDERED: PANT-47 PO (08:52)
[2022-04-27] MEDS ORDERED: ROSU40TA PO (08:52)
[2022-04-27] MEDS ORDERED: Vitamin B12 PO (08:53)
== END 2022-04-27 11:55 | disposition home or self-care (01) ==
LOC: SSTAY O 07:41
PROVIDERS: ATTEND Internal Medicine Cardiovascular Disease
DX: I48.92 Unspecified atrial flutter (principal); I25.10 Atherosclerotic heart disease of native coronary artery without angina pectoris; I25.2 Old myocardial infarction; E78.5 Hyperlipidemia, unspecified; I10 Essential (primary) hypertension; F41.0 Panic disorder [episodic paroxysmal anxiety]; Z95.1 Presence of aortocoronary bypass graft; Z90.49 Acquired absence of other specified parts of digestive tract; Z79.01 Long term (current) use of anticoagulants; Z79.82 Long term (current) use of aspirin; Z79.899 Other long term (current) drug therapy; Z87.891 Personal history of nicotine dependence; Z88.8 Allergy status to other drugs, medicaments and biological substances; Z82.49 Family history of ischemic heart disease and other diseases of the circulatory system; Z82.3 Family history of stroke
CPT/HCPCS: 36415; 80048; 85025; 85610; 85730; 92960; 93005; J2250; J2274; J7030; A4620

== ENCOUNTER 2022-11-23 11:35 | Emergency (ER) | payer MEDICARE, OTHER ==
[~2022-11-23] VITALS: Ht 162.6 cm; Wt 57.7 kg
[~2022-11-23 11:35] MED LIST changes: -ACET325T55 PO; +AMI200T PO; -AMIO200T61 PO; -ASPI-1265 PO; -ATOR20TA66 PO; -BISA10SU11 RC; +CHOL500050 PO; -DOCU100C40 PO; -FER325T PO; -FLUD0.1T PO; +LISI20TA28 PO; -MULT-1085 PO; +PANT-47 PO; -PANT40TA54 PO; +ROSU40TA PO; +Vitamin B12 PO; -ZET10T PO
[2022-11-23 11:55] VITALS: BP 163/88; PULSE 70; RESP 18; TEMP 98.4; O2SAT 98
[2022-11-23 12:54] LABS: BASOPHILS % (AUTO) 0.4 % (0-1); EOSINOPHILS # (AUTO) 0.1 X10'3 (0-0.9); EOSINOPHILS % (AUTO) 1.4 % (0-6); HEMATOCRIT 39.8 % (35.0-45.0); HEMOGLOBIN 13.1 g/dl (12.0-16.0); LYMPHOCYTES # (AUTO) 0.7 X10'3 (1.1-4.8); LYMPHOCYTES % (AUTO) 9.3 % (21-51); MEAN CORPUSCULAR HEMOGLOBIN 31.5 PG (27.0-31.0); MEAN CORPUSCULAR HGB CONC 32.8 g/dL (33.0-36.5); MEAN PLATELET VOLUME 8.2 FL (7.4-10.4); MONOCYTES # (AUTO) 0.7 X10'3 (0-0.9); MONOCYTES % (AUTO) 8.4 % (2-12); NEUTROPHILS # (AUTO) 6.4 X10'3 (1.8-7.7); NEUTROPHILS % (AUTO) 80.5 % (42-75); PLATELET COUNT 165 X10'3 (140-440); RED BLOOD COUNT 4.14 X10'6 (4.20-5.60); RED CELL DISTRIBUTION WIDTH 13.7 % (11.5-14.5); WHITE BLOOD COUNT 7.9 X10'3 (4.5-11.0)
[2022-11-23 13:14] LABS: ALANINE AMINOTRANSFERASE 134 U/L (12-78); ALBUMIN 3.2 G/DL (3.4-5.0); ALBUMIN/GLOBULIN RATIO 1.3 (1.1-1.5); ALKALINE PHOSPHATASE 86 IU/L (46-116); ANION GAP 7 (8-16); ASPARTATE AMINO TRANSFERASE 93 U/L (10-37); BILIRUBIN,TOTAL 0.5 MG/DL (0.1-1.0); BLOOD UREA NITROGEN 19 MG/DL (7-18); BUN/CREATININE RATIO 17.9 (10.0-20.0); CALCIUM 8.8 MG/DL (8.5-10.1); CHLORIDE 106 MMOL/L (99-107); CREATININE 1.06 MG/DL (0.40-0.90); GLUCOSE 99 MG/DL (70-104); POTASSIUM 4.4 MMOL/L (3.5-5.1); SODIUM 139 MMOL/L (135-145); TOTAL CARBON DIOXIDE 26.3 MMOL/L (24-32); TOTAL PROTEIN 5.7 G/DL (6.4-8.2); eCRCL 39 ML/MIN; eGFR 50 ML/MIN
== END 2022-11-23 14:43 | disposition home or self-care (01) ==
LOC: ER 11:36
DX: R79.9 Abnormal finding of blood chemistry, unspecified (principal); E78.00 Pure hypercholesterolemia, unspecified; I10 Essential (primary) hypertension; Z87.81 Personal history of (healed) traumatic fracture; Z88.2 Allergy status to sulfonamides; Z79.899 Other long term (current) drug therapy
CPT/HCPCS: 36415; 80053; 85025; 99283

== ENCOUNTER 2023-04-15 19:49 | Emergency (ER) | payer MEDICARE, OTHER ==
[~2023-04-15] VITALS: Ht 162.6 cm; Wt 68.2 kg
[2023-04-15 20:05] VITALS: TEMP 98.3
[2023-04-15] MEDS ORDERED: HYDROcodone/acetaminophen 5mg/325mg tablet PO ONE (21:45)
[2023-04-15] MEDS ORDERED: DOCU-148 PO (22:57)
[2023-04-15] MEDS ORDERED: HYDR-3965 PO (22:57)
[2023-04-15 23:36] VITALS: BP 132/80; PULSE 68; RESP 20; O2SAT 96
== END 2023-04-15 23:45 | disposition home or self-care (01) ==
LOC: ER 19:51
DX: S92.811A Other fracture of right foot, initial encounter for closed fracture (principal); X58.XXXA Exposure to other specified factors, initial encounter; Y93.89 Activity, other specified; Y92.89 Other specified places as the place of occurrence of the external cause; Y99.8 Other external cause status
CPT/HCPCS: 29515; 73610; 73630; 99284

== ENCOUNTER 2023-08-16 19:26 | Emergency (ER) | payer MEDICARE, OTHER ==
[~2023-08-16] VITALS: Ht 162.6 cm; Wt 77.3 kg
[~2023-08-16 19:26] MED LIST changes: +DOCU-148 PO
[2023-08-16 19:33] VITALS: TEMP 98.7
[2023-08-16 20:01] LABS: BASOPHILS # (AUTO) 0.1 X10'3 (0-0.2); BASOPHILS % (AUTO) 0.5 % (0-1); EOSINOPHILS # (AUTO) 0.1 X10'3 (0-0.9); EOSINOPHILS % (AUTO) 0.6 % (0-6); HEMATOCRIT 45.6 % (35.0-45.0); HEMOGLOBIN 15.1 g/dl (12.0-16.0); LYMPHOCYTES # (AUTO) 0.7 X10'3 (1.1-4.8); LYMPHOCYTES % (AUTO) 6.7 % (21-51); MEAN CORPUSCULAR HEMOGLOBIN 31.1 PG (27.0-31.0); MEAN CORPUSCULAR HGB CONC 33.1 g/dL (33.0-36.5); MEAN CORPUSCULAR VOLUME 93.9 FL (78-98); MEAN PLATELET VOLUME 8.4 FL (7.4-10.4); MONOCYTES % (AUTO) 9.1 % (2-12); NEUTROPHILS # (AUTO) 8.7 X10'3 (1.8-7.7); NEUTROPHILS % (AUTO) 83.1 % (42-75); PLATELET COUNT 225 X10'3 (140-440); RED BLOOD COUNT 4.86 X10'6 (4.20-5.60); RED CELL DISTRIBUTION WIDTH 14.2 % (11.5-14.5); WHITE BLOOD COUNT 10.5 X10'3 (4.5-11.0)
[2023-08-16 20:20] LABS: ALBUMIN 3.4 G/DL (3.4-5.0); ANION GAP 7 (8-16); BLOOD UREA NITROGEN 17 MG/DL (7-18); BUN/CREATININE RATIO 14.4 (10.0-20.0); CALCIUM 9.3 MG/DL (8.5-10.1); CHLORIDE 105 MMOL/L (99-107); CREATININE 1.18 MG/DL (0.40-0.90); GLUCOSE 104 MG/DL (70-104); POTASSIUM 4.3 MMOL/L (3.5-5.1); PRO BRAIN NATRIURETIC PEPTIDE 3661 PG/ML (0-450); SODIUM 138 MMOL/L (135-145); TOTAL CARBON DIOXIDE 26.4 MMOL/L (24-32); eCRCL 34 ML/MIN; eGFR 44 ML/MIN
[2023-08-17] MEDS: normal saline 1000ml 1,000 ML IV ONE (01:33)
[2023-08-17] MEDS: ondansetron/PF 4mg/2ml inj IV ONE (01:43)
[2023-08-17] MEDS: acetaminophen 1,000mg/100ml IV 100 ML IV ONE (01:43)
[2023-08-17 02:30] LABS: BILIRUBIN,URINE NEGATIVE (Neg); CLARITY,URINE CLOUDY (Clear); COLOR,URINE YELLOW (Yellow); GLUCOSE, URINE NEGATIVE (Neg); KETONES,URINE 15 mg/dl (Neg); LEUKOCYTE ESTERASE ,URINE TRACE (Neg); NITRITES, URINE POSITIVE (Neg); OCCULT BLOOD,URINE NEGATIVE (Neg); PH,URINE 5.5 (4.8-8.0); PROTEIN,URINE NEGATIVE (Neg)
[2023-08-17 02:31] LABS: UA COLLECTION TYPE CLN CATCH MIDSTREAM
[2023-08-17 02:36] LABS: HYALINE CASTS 0-3 /LPF (NEGATIVE); MUCUS STRANDS MANY /LPF (Neg)
[2023-08-17 02:37] LABS: BACTERIA,URINE 4+ /HPF (Neg); SQUAMOUS EPITHELIAL CELL,UR FEW /LPF (FEW)
[2023-08-17 02:38] LABS: COARSE GRANULAR CAST 0-3 /LPF (NEGATIVE); RBC,URINE 0-2 /HPF (0-2)
[2023-08-17 03:58] VITALS: BP 149/96; PULSE 70; RESP 18; O2SAT 94
[2023-08-17] MEDS ORDERED: CefTRIAXone/D5W-Rocephin 1gm 50 ML IV ONE (04:55)
[2023-08-17] MEDS ORDERED: CEPH-585 PO (04:58)
[2023-08-17] MEDS ORDERED: KEN0.1O TOP (05:09)
[2023-08-17] MEDS: CefTRIAXone 2gm/D5W 50ml BAG 50 ML IV ONE (05:15)
== END 2023-08-17 06:03 | disposition home or self-care (01) ==
LOC: ER 19:27
DX: G93.41 Metabolic encephalopathy (principal); N39.0 Urinary tract infection, site not specified; Z20.822 Contact with and (suspected) exposure to COVID-19; E11.9 Type 2 diabetes mellitus without complications; I25.10 Atherosclerotic heart disease of native coronary artery without angina pectoris; E78.00 Pure hypercholesterolemia, unspecified; I10 Essential (primary) hypertension; Z90.49 Acquired absence of other specified parts of digestive tract; Z95.0 Presence of cardiac pacemaker; Z88.8 Allergy status to other drugs, medicaments and biological substances; Z79.899 Other long term (current) drug therapy
CPT/HCPCS: 36415; 70450; 71045; 71250; 80048; 81001; 83880; 84484; 85025; 87077; 87088; 87186; 93005; 96365; 96375; 99285; J0131; J0696; J2405; J7030; 96361